=== PATIENT | male | born 1995 | race Caucasian/White ===

== ENCOUNTER 2025-04-29 15:57 | Emergency (ER) | payer OTHER, SELFPAY ==
[2025-04-29 16:01] VITALS: BP 122/82; PULSE 75; RESP 18; TEMP 36.1; O2SAT 97; BMI 41.4
--- NOTE | 2025-04-29 16:32 | CRLHL7_ITS ---
For Patients: As a result of the Century Cures Act, medical imaging exams and procedure reports are released immediately into your electronic medical record. You may view this report before your referring provider. If you have questions, please contact your health care provider. INDICATION: Umbilical drainage. Abdominal pain. TECHNIQUE: CT abdomen and pelvis without contrast. COMPARISON: None. FINDINGS: Lung bases are clear. The liver is unremarkable. No definite liver lesion is seen. The gallbladder is partially distended. There may be some cholelithiasis. No significant pericholecystic stranding or fluid to suggest cholecystitis. No ductal dilatation. Spleen is normal in size. The pancreas is without stranding or main ductal dilatation. The adrenal glands are normal. The kidneys are without hydronephrosis or perinephric urinary bladder is partially distended. No substantial bladder wall thickening or stranding. The colon is nondilated. The appendix is nondilated without evidence of acute appendicitis. The small bowel is nondilated without evidence of a small-bowel obstruction or enteritis. The stomach is partially distended. There is no umbilical hernia. No fluid collection is seen or significant inflammatory fat stranding. No free air. No ascites. No organized drainable fluid collection. Prominent inguinal lymph nodes are noted and likely reactive. Prostate is unremarkable. Aorta is nonaneurysmal Bone windows demonstrate subcentimeter sclerotic lesions within the bony pelvis, likely representing bone islands. IMPRESSION: 1. No gross CT finding to explain the patient`s symptoms. Please note that all CT scans at this facility use dose modulation, iterative reconstruction, and/or weight-based dosing when appropriate to reduce radiation dose to as low as reasonably achievable. Dictated by Chris Mireles MD @ 04/29/2025 5:24:25 PM (Electronically Signed)
[2025-04-29 17:32] LABS: Lactate* 0.6 mmol/L (0.5-1.9)
[2025-04-29 17:44] LABS: Hematocrit* 43.5 % (37.0-53.0); Hemoglobin* 14.0 gm/dL (13.5-17.5); Immature Granulocytes Abs Auto 0.02 K/uL (0.00-0.30); Immature Granulocytes Pct Auto 0.3 %; Lymphocytes Absolute Auto 2.30 K/uL (0.90-2.90); Mean Corpuscular HGB Conc 32 gm/dL (32-36); Mean Corpuscular Hemoglobin 28 pg (26-34); Mean Corpuscular Volume 87 fL (80-100); RDW Coefficient of Variation % 13.1 % (11.5-15.5); Red Blood Count* 4.99 m/uL (4.30-5.90); White Blood Count* 7.49 K/uL (4.50-11.00)
[2025-04-29 18:02] LABS: Slide Review Reflex No
[2025-04-29 18:42] LABS: Appearance Urine Clear (Clear)
[2025-04-29 18:51] VITALS: BP 122/78; PULSE 55; RESP 16; O2SAT 98
[2025-04-29 19:15] LABS: Albumin* 4.2 g/dL (3.3-5.0); Chloride* 103 mmol/L (96-114); Potassium* 3.8 mmol/L (3.6-5.1); Sodium* 141 mmol/L (135-149)
[2025-04-29 19:17] LABS: Blood Urea Nitrogen* 16 mg/dL (5-24); Creatinine* 0.9 mg/dL (0.5-1.5); Est. Creatinine Clearance* 151.36; Estimated Glomerular Filt Rate 120 ml/min
[2025-04-29 19:18] LABS: Alanine Aminotransferase* 59 U/L (4-50); Alkaline Phosphatase* 67 U/L (40-150); Anion Gap 12 mEq/L (7-15); Aspartate Amino Transferase* 37 U/L (12-35); Bilirubin Total* 0.5 mg/dL (0.1-1.5); Carbon Dioxide* 26 mmol/L (20-32); Total Protein* 7.6 g/dL (6.0-8.3)
[2025-04-29 19:19] LABS: Calcium* 9.0 mg/dL (8.4-10.6); Glucose* 92 mg/dL (60-115)
--- NOTE | 2025-04-29 19:51 | ED_ITS ---
HPI - Abdominal Pain General Date Seen: 04/29/25 Chief Complaint: Abdominal Pain Stated Complaint: pain in stomach/ sent from urgent care Time Seen by Provider: 04/29/25 17:09 Source: patient, family, RN notes reviewed and old records reviewed Mode of arrival: ambulatory Limitations: no limitations History of Present Illness HPI narrative: Patient is a 29-year-old gentleman who presented from the clinic, with abdominal pain is thought he may be an appendicitis, CT scan laboratory tests were ordered, and I am following these up. Did have some nausea today and vomited x1, temperatures up to 99 at home. Did not take anything for the pain, also having some discharge from his belly button, denies previous abdominal surgeries. 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 History of Klinefelter syndrome, on testosterone replacement. MD elicited complaint: abdominal pain Pertinent past history: none Location: periumbilical and RLQ Severity: moderate Quality: cramping and stabbing Radiation: none Migration to: no migration Exacerbating factors: nothing Relieving factors: nothing Associated symptoms: nausea and vomiting Related Data Home Medications ?Medication ?Instructions ?Recorded ?Confirmed testosterone 04/29/25 Allergies Allergy/AdvReac Type Severity Reaction Status Date / Time adhesive tape Allergy Severe Anaphylaxis Verified 04/29/25 16:09 Review of Systems Status of ROS Reports: 10 or more systems reviewed and unremarkable except as noted in History and below Exam Narrative: Exam Narrative: On examination he is in no apparent distress, with normal vital signs in room 7 pupils equal round reactive to light there is no scleral icterus redness is TMs bilaterally normal his oropharynx is normal there is no adenopathy anterior posterior chains chest is good air entry bilaterally no wheezing crackles noted his abdomen is obese in large, there is no tenderness to palpation, bowel sounds are normal there is no masses, N/C no evidence of any discharge from his umbilicus, no CVA tenderness moves all extremities independently well, he does not have any inguinal hernias noted bilaterally. And normal male genitalia with normal testicles. Const: Vital Signs, click to edit/add: Vital Signs - 24 hr 04/29/25 16:01 04/29/25 18:51 Temperature 97.0 F L Pulse Rate 55 L Pulse Rate [Pulse Oximeter] 75 Respiratory Rate 18 16 Blood Pressure 122/78 Blood Pressure [Ri ght Upper Arm] 122/82 Pulse Oximetry 97 98 Oxygen Delivery Me thod Room Air Course Vital Signs Vital signs: Initial Vital Signs Temperature 97.0 F L 04/29/25 16:01 Temperature Source Temporal Artery Scan 04/29/25 16:01 Pulse Rate 75 04/29/25 16:01 Pulse Rhythm Regular 04/29/25 16:01 Respiratory Rate 18 04/29/25 16:01 Blood Pressure 122/82 04/29/25 16:01 Blood Pressure Mean 95 04/29/25 16:01 Blood Pressure Position Sitting 04/29/25 16:01 Pulse Oximetry 97 04/29/25 16:01 Oxygen Delivery Method Room Air 04/29/25 16:01 Vital Signs Temperature 97.0 F L 04/29/25 16:01 Pulse Rate 75 04/29/25 16:01 Respiratory Rate 18 04/29/25 16:01 Blood Pressure 122/82 04/29/25 16:01 Pulse Oximetry 97 04/29/25 16:01 Oxygen Delivery Method Room Air 04/29/25 16:01 Temperature 97.0 F L 04/29/25 16:01 Pulse Rate 55 L 04/29/25 18:51 Respiratory Rate 16 04/29/25 18:51 Blood Pressure 122/78 04/29/25 18:51 Pulse Oximetry 98 04/29/25 18:51 Oxygen Delivery Method Room Air 04/29/25 16:01 Medications Administered Medications: Generic Name Dose Route Start Last Admin Trade Name Freq PRN Reason Stop Dose Admin Ketorolac Tromethamine 30 mg 04/29/25 18:38 04/29/25 18:44 Ketorolac 30 Mg/Ml Inj IVP 04/29/25 18:39 30 mg ONCE ONE Administration MDM - Abdominal Pain MDM Narrative Medical decision making narrative: During this evaluation of this patient I considered multiple differential diagnosis is which included the life-threatening such as appendicitis, aortic aneurysm, mesenteric ischemia, bowel perforation, volvulus, and bowel obstruction. Other differential diagnosis is include but are not limited to cholecystitis, pancreatitis, hepatitis, gastritis, GERD, diverticulitis, peptic ulcer disease, pyelonephritis/UTI, renal colic/stone, testicular torsion as well as other acute scrotal processes, inflammatory bowel disease, as well as other etiologies We did give some Toradol and some fluids here, he had no more episodes of vomiting his pain improved somewhat. But did not totally go way, I reviewed with him that his CT scan is normal, his laboratory work all are normal. I do not know what is causing his abdominal pain but I do know he does not have appendicitis currently, or diverticulitis or any intra-abdominal process. He does not also does not have a hernia based on the CT, I think a reasonable approach here to be watchful waiting using ibuprofen and see how it goes increasing signs and symptoms of worsening condition he should follow-up. We talked about this Medical Records Attestation: I reviewed the patient's medical records. Lab Data Attestation: I reviewed the patient's lab results. Labs: Lab Results 04/29/25 04/29/25 Range/Units 17:28 18:34 WBC 7.49 (4.50-11.00) K/uL RBC 4.99 (4.30-5.90) m/uL Hgb 14.0 (13.5-17.5) gm/dL Hct 43.5 (37.0-53.0) % MCV 87 (80-100) fL MCH 28 (26-34) pg MCHC 32 (32-36) gm/dL RDW Coeff of Shirin 13.1 (11.5-15.5) % Plt Count 226 (140-440) K/uL Neut % (Auto) 58.1 (42.0-72.0) % Lymph % (Auto) 30.7 (20-44) % Pender % (Auto) 8.4 (0.0-11.0) % Eos % (Auto) 2.1 (0.0-7.0) % Baso % (Auto) 0.4 (0.0-3.0) % Neut # (Auto) 4.35 (1.7-7.0) K/uL Lymph # (Auto) 2.30 (0.90-2.90) K/uL Pender # (Auto) 0.60 (0.00-0.90) K/UL Eos # (Auto) 0.16 (0.00-0.50) K/uL Baso # (Auto) 0.03 (0.00-0.30) K/uL Abs Immat Gran (auto) 0.02 (0.00-0.30) K/uL Imm/Tot Granulo (auto) 0.3 % Sodium 141 (135-149) mmol/L Potassium 3.8 (3.6-5.1) mmol/L Chloride 103 (96-114) mmol/L Carbon Dioxide 26 (20-32) mmol/L Anion Gap 12 (7-15) mEq/L BUN 16 (5-24) mg/dL Creatinine 0.9 (0.5-1.5) mg/dL Estimated Creat Clear 151.36 Estimated GFR 120 ml/min Glucose 92 (60-115) mg/dL Lactate 0.6 (0.5-1.9) mmol/L Calcium 9.0 (8.4-10.6) mg/dL Total Bilirubin 0.5 (0.1-1.5) mg/dL AST 37 H (12-35) U/L ALT 59 H (4-50) U/L Alkaline Phosphatase 67 (40-150) U/L C-Reactive Protein 1.4 H (0.5-1.0) mg/dL Total Protein 7.6 (6.0-8.3) g/dL Albumin 4.2 (3.3-5.0) g/dL Lipase 49 (23-300) U/L Urine Color Yellow (Yellow) Urine Appearance Clear (Clear) Urine pH 5.5 (5.0-8.5) Ur Specific [place] 1.025 (1.000-1.030) Urine Protein Negative (Negative) Urine Glucose (UA) Negative (Negative) Urine Ketones Negative (Negative) Urine Blood Negative (Negative) Urine Nitrite Negative (Negative) Urine Bilirubin Negative (Negative) Urine Urobilinogen 0.2 (0.2-1.0) Ur Leukocyte Esterase Negative (Negative) Urine RBC 0-2 (0-2) Urine WBC 0-2 (0-5) Ur Squamous Epith Cells None (None-Few) Urine Bacteria None (None) Imaging Data CT scan - abdomen: Radiologist's impression: [address] [address] Diagnostic Imaging Report Patient: Randy Martinez MR#: [id number] : 1995 Acct:[id number] Loc: ED Service Date: 04/29/[address]: Ordering Physician: Florence Julian M.D. Date of Service: 04/29/25 Procedure(s): CT abdomen pelvis wo con Accession Number(s): [id number] cc: Florence Julian M.D.~ For Patients: As a result of the Cures Act, medical imaging exams and procedure reports are released immediately into your electronic medical record. You may view this report before your referring provider. If you have questions, please contact your health care provider. INDICATION: Umbilical drainage. Abdominal pain. TECHNIQUE: CT abdomen and pelvis without contrast. COMPARISON: None. FINDINGS: Lung bases are clear. The liver is unremarkable. No definite liver lesion is seen. The gallbladder is partially distended. There may be some cholelithiasis. No significant pericholecystic stranding or fluid to suggest cholecystitis. No ductal dilatation. Spleen is normal in size. The pancreas is without stranding or main ductal dilatation. The adrenal glands are normal. The kidneys are without hydronephrosis or perinephric urinary bladder is partially distended. No substantial bladder wall thickening or stranding. The colon is nondilated. The appendix is nondilated without evidence of acute appendicitis. The small bowel is nondilated without evidence of a small-bowel obstruction or enteritis. The stomach is partially distended. There is no umbilical hernia. No fluid collection is seen or significant inflammatory fat stranding. No free air. No ascites. No organized drainable fluid collection. Prominent inguinal lymph nodes are noted and likely reactive. Prostate is unremarkable. Aorta is nonaneurysmal Bone windows demonstrate subcentimeter sclerotic lesions within the bony pelvis, likely representing bone islands. IMPRESSION: 1. No gross CT finding to explain the patient`s symptoms. Please note that all CT scans at this facility use dose modulation, iterative reconstruction, and/or weight-based dosing when appropriate to reduce radiation dose to as low as reasonably achievable. Dictated by Chris Mireles MD @ 04/29/2025 5:24:25 PM (Electronically Signed) Discharge Plan Discharge Clinical Impression: Abdominal pain Patient Disposition: Home w/ Parent or Adult Condition: Stable Instructions: Acute Abdominal Pain (DC) Additional Instructions: As I discussed with you your CT scan shows no evidence of any intra-abdominal issues, the laboratory tests all look normal, with no evidence of infection, elevated liver tests or other signs such as pancreatitis. Nausea pain remains elusive at this time, I would suggest watchful evaluation, a lot of times unfortunately this will become more clear with time, for your questions about the discharge from her belly button I can see no infection or hernias there, I would use some warm water with some soap in just clean this out with a Q-tip, maybe some bacitracin would be helpful. Follow up with primary care if ongoing signs and symptoms or return here to the ER. If worsening. Activity Level: Light activity Prescriptions: No Action testosterone Follow Up/Referrals: Provider,Not a Local [Primary Care Provider, Family Practice] Stand Alone Forms: [email or web address] Info Instructions
== END 2025-04-29 20:33 | disposition home or self-care (01) ==
PROVIDERS: Family Medicine; Emergency Provider Family Medicine
DX: R10.9 Unspecified abdominal pain (principal)
CPT/HCPCS: 36415; 74176; 80053; 81001; 83605; 83690; 85025; 86140; 96374; 99284; J1885